=== PATIENT | male | born 1945 | race Caucasian/White ===

== ENCOUNTER 2024-05-02 10:24 | Outpatient (CLI) | payer MEDICARE, SELFPAY ==
--- NOTE | 2024-05-02 10:37 | XRR_ITS ---
PROCEDURE INFORMATION: Exam: XR Chest Exam date and time: 05/02/2024 10:48 AM Age: 79 years old Clinical indication: Cough; Additional info: Cough x 3 months TECHNIQUE: Imaging protocol: Radiologic exam of the chest. Views: 2 views. COMPARISON: No relevant prior studies available. FINDINGS: Lungs: The lungs are clear. Pleural spaces: No pneumothorax or pleural effusion. Heart/Mediastinum: Cardiomediastinal silhouette is unremarkable. Bones/joints: No acute osseous or soft tissue abnormality. Other findings: Patient is mildly rotated. XR/XR chest 2V* [id number] IMPRESSION: No acute cardiopulmonary abnormality.
== END 2024-05-02 10:25 | disposition home or self-care (01) ==
PROVIDERS: PCP Family Medicine; Visit Provider Family Medicine
DX: R05.3 Chronic cough (principal)
CPT/HCPCS: 71046

== ENCOUNTER → 2024-10-24 09:56 | Outpatient (BNVA) | payer MEDICARE, SELFPAY | PROVIDERS: PCP Family Medicine; Visit Provider Family Medicine | DX: E87.1 Hypo-osmolality and hyponatremia (principal); I10 Essential (primary) hypertension; E78.00 Pure hypercholesterolemia, unspecified; E03.9 Hypothyroidism, unspecified; R05.3 Chronic cough | CPT/HCPCS: 80053; 80061; 84439; 84443; 85025 ==

== ENCOUNTER 2024-11-02 07:00 | Outpatient (CLI) | payer MEDICARE, SELFPAY ==
--- NOTE | 2024-11-02 07:15 | CT_ITS ---
WS: [id number] CT chest wo con [id number] HISTORY: chronic cough; smoker TECHNIQUE: Axial imaging performed through the thorax. Coronal and sagittal reformats are submitted. All CT scans at [facility] use at least one of these dose optimization techniques: automated exposure control; mA and/or kV adjustment per patient size (includes targeted exams where dose is matched to clinical indication); or iterative reconstruction. CONTRAST: None DLP: 439.20 mGy.cm COMPARISON: None available. Lungs and central airway: Mild pulmonary hyperinflation. No pulmonary mass or nodule. No pneumonia. No endobronchial lesions are identified. There is a small amount of mucus in the proximal RIGHT mainstem bronchus from secretions. Pleura: Normal. No pleural effusion. Heart and pericardium: Normal size heart with no pericardial effusion. Mediastinum and lizbeth: No mediastinum or hilar adenopathy. Vessels: Mildly ectatic thoracic aorta with scattered plaque. Not aneurysmal. Normal size pulmonary artery. Dense coronary artery calcifications are present. Greatest distribution in the LAD. Chest wall and lower neck: No soft tissue masses. Upper abdomen: No adrenal mass. Dense suprarenal aortic calcifications. Small hiatal hernia. Osseous structures: Mild thoracic spondylosis. No fractures. CT/CT chest wo con [id number] IMPRESSION: 1. No pulmonary mass, nodule or pneumonia. 2. No pleural effusion. 3. Ectatic thoracic aorta with scattered plaque. Nonaneurysmal. 4. Dense calcification in the LEFT anterior descending coronary artery. 5. No mediastinal or hilar adenopathy.
== END 2024-11-02 07:01 | disposition home or self-care (01) ==
LOC: RAD 07:01
PROVIDERS: PCP Family Medicine; Visit Provider Family Medicine
DX: R05.3 Chronic cough (principal); K44.9 Diaphragmatic hernia without obstruction or gangrene
CPT/HCPCS: 71250